=== PATIENT | female | born 1980 | race Caucasian/White ===

== ENCOUNTER 2016-11-27 | Inpatient (IN) | payer OTHER ==
[~2016-11-27] MED LIST: CALCIUM600 MG; CALCIUM600 MG PO; IBUPROFEN800 MG PO; IRON1 TAB; OMNARIS12.5 GM NS; OXYCODONE/APAP PO; PRENATE ESSENT1 EACH PO; XYZAL5 MG PO
[2016-11-27] MEDS ORDERED: CALCIUM CARBON600 M2 PO (07:59)
[2016-11-28] MEDS ORDERED: IBUPROFEN800 M1 PO (21:46)
== END 2016-11-29 12:25 | DRG 775 ==
DX: O70.1 Second degree perineal laceration during delivery (principal); Z37.0 Single live birth; Z3A.39 39 weeks gestation of pregnancy